=== PATIENT | male | born 1990 | race Caucasian/White ===

== ENCOUNTER 2017-01-21 20:51 | Emergency (ER) | payer OTHER ==
[~2017-01-21] VITALS: Ht 175.3 cm; Wt 91.0 kg
[~2017-01-21 20:51] MED LIST: OXYC1TAB3 PO; TAMS0.4C38 PO
[2017-01-21 21:01] VITALS: Ht 175.3 cm; Wt 91.0 kg
[2017-01-21 21:27] LABS: MANUAL MICROSCOPIC REQUIRED? NO; REVIEW REQ? NO; URINE APPEARANCE TURBID (CLEAR); URINE BILIRUBIN NEG (NEG); URINE COLOR YELLOW; URINE EPITHELIAL CELL AUTO 0-5 /lpf (0-5); URINE NITRITE NEG (NEG); URINE PH 7.5 (4.5-7.5); URINE SPECIFIC GRAVITY 1.019 (1.000-1.030); UROBILINOGEN NEG (NEG); ZZUR CULT IF INDIC CLEAN CATCH NO
[2017-01-21 21:52] LABS: BENZODIAZEPINE, URINE NEG (NEG); COCAINE,URINE NEG (NEG); PHENCYCLIDINE, URINE NEG (NEG)
[2017-01-21] MEDS ORDERED: PROP10TA7 PO (21:53)
[2017-01-21] MEDS ORDERED: QUET1TAB34 PO (21:53)
[2017-01-21] MEDS ORDERED: HYDR1CAP85 PO (21:53)
[2017-01-21] MEDS ORDERED: GUAN1TAB PO (21:53)
[2017-01-21] MEDS ORDERED: SERT-234 PO (21:53)
[2017-01-21 22:08] LABS: BASO % 0.3 %; BASO ABS # 0.03 K/uL (0-0.2); COMPLETE YES; EOS % 3.2 %; HEMATOCRIT 44.1 % (42-52); IG% 0.5 %; LYMPH % 34.3 %; LYMPH ABS # 3.51 K/uL (1.2-3.4); MEAN CELL VOLUME 88.6 fL (80-100); MEAN CORPUSCULAR HEMOGLOBIN 31.3 pg (25-34); MEAN CORPUSCULAR HGB CONC 35.4 g/dl (32-36); MEAN PLATELET VOLUME 8.5 fL (7.4-10.4); MONO % 8.1 %; NEUT % 53.6 %; PLATELET COUNT 324 K/uL (130-400); RED BLOOD COUNT 4.98 M/uL (4.7-6.1); WHITE BLOOD COUNT 10.22 K/uL (4.8-10.8)
[2017-01-21] MEDS ORDERED: hydrOXYzine HCL 25 MG TAB PO STA (22:37)
[2017-01-21 22:40] LABS: ALT/SGPT 20 U/L (12-78); BLOOD UREA NITROGEN 10 mg/dl (7-18); BUN/CREATININE RATIO 11.8 (10-20); CALCIUM 9.6 mg/dl (8.5-10.1); CARBON DIOXIDE 29 mmol/L (21-32); CHLORIDE 104 mmol/L (98-107); CREATININE 0.82 mg/dl (0.60-1.40); GLUCOSE 87 mg/dl (70-99); POTASSIUM 3.8 mmol/L (3.5-5.1); SODIUM 138 mmol/L (136-145)
[2017-01-21 22:50] LABS: ALKALINE PHOSPHATASE 55 U/L (45-117); AST/SGOT 16 U/L (15-37)
[2017-01-21 22:51] LABS: ACETAMINOPHEN < 2 ug/ml (10-30)
--- NOTE | 2017-01-21 23:13 | EMERGENCY ROOM VISIT NOTE ---
History Report prepared by Mahesh: Romy Batista Under the Supervision of: Dr. Myah Buckner M.D. First contact with patient: 21:06 Chief Complaint: MENTAL HEALTH EVALUATION Stated Complaint: SUICIDAL THOUGHTS, RELAPSE History of Present Illness The patient is a 26 year old male who presents to the Emergency Room with complaints of worsening depression starting around 1400 today. The patient has a history of severe depression and anxiety. He was in the [facility] earlier this year. He had been feeling well today. Around 1400, he started having some feelings of depression and anxiety. He was having "premonitions" of driving [address], overdosing on Zoloft, and slitting his throat. He had an appointment with his counselor at 1600. He was "bouncing around" and making statements about self harm. He was saying that if he had the means to harm himself at that moment, he would. He denies having any intention to harm himself today. He smokes marijuana regularly and notes that he did not have any marijuana today. He started a new job yesterday which has been going well for him. He notes that his new job is in a building that is said to be haunted. He denies taking any excess pills today. He does not have any medical problems. He has been told that he might be bipolar, but has not been diagnosed yet. Source of History: patient Onset: 1400 Position: other (global) Quality: other (depression) Timing: worsening Note: Pt reports having thoughts of harming himself, anxiety. Review of Systems See HPI for pertinent positives & negatives. A total of 10 systems reviewed and were otherwise negative. Past Medical & Surgical Medical Problems: (1) Anxiety (2) Depression Family History Patient reports no known family medical history. Social History Smoking Status: Current Every Day Smoker Marital Status: single Occupation Status: employed Current/Historical Medications Scheduled Guanfacine Hcl (Tenex), 1 MG PO DAILY Propranolol (Inderal), 10 MG PO DAILY Quetiapine Fumarate (Seroquel), 100 MG PO QPM Sertraline (Zoloft), 100 MG PO DAILY Scheduled PRN Hydroxyzine Pamoate (Vistaril), 25 MG PO DAILY PRN for Anxiety Allergies Coded Allergies: No Known Allergies (Unverified , 01/21/17) Physical Exam Vital Signs Date Time Temp Pulse Resp B/P (MAP) Pulse Ox O2 Delivery O2 Flow Rate FiO2 01/21/17 22:41 62 140/79 98 Room Air 01/21/17 21:01 36.9 75 20 145/92 97 Room Air Physical Exam Vital signs reviewed. General: Well-appearing male, in no significant distress. HEENT: No scleral icterus, PERRLA, neck supple. Atraumatic. Cardiovascular: Regular rate and rhythm, no extra sounds. Pulmonary: Clear to auscultation bilaterally, normal work of breathing. Abdomen: Soft, nontender, nondistended, positive bowel sounds. Musculoskeletal: Atraumatic, no peripheral edema. Neurologic: Patient awake alert and oriented x 3 Skin: Warm, dry, no rash Psych: Positive SI, negative HI. Medical Decision & Procedures Laboratory Results 01/21/17 21:49 Red Blood Count 4.98, Mean Corpuscular Volume 88.6, Mean Corpuscular Hemoglobin 31.3, Mean Corpuscular Hemoglobin Concent 35.4, Mean Platelet Volume 8.5, Neutrophils (%) (Auto) 53.6, Lymphocytes (%) (Auto) 34.3, Monocytes (%) (Auto) 8.1, Eosinophils (%) (Auto) 3.2, Basophils (%) (Auto) 0.3, Neutrophils # (Auto) 5.47, Lymphocytes # (Auto) 3.51, Monocytes # (Auto) 0.83, Eosinophils # (Auto) 0.33, Basophils # (Auto) 0.03 01/21/17 21:49 Test 01/21/17 21:10 01/21/17 21:49 Urine Color YELLOW Urine Appearance TURBID (CLEAR) Urine pH 7.5 (4.5-7.5) Urine Specific [place] 1.019 (1.000-1.030) Urine Protein NEG (NEG) Urine Glucose (UA) NEG (NEG) Urine Ketones TRACE (NEG) Urine Occult Blood NEG (NEG) Urine Nitrite NEG (NEG) Urine Bilirubin NEG (NEG) Urine Urobilinogen NEG (NEG) Urine Leukocyte Esterase NEG (NEG) Urine WBC (Auto) 0 /hpf (0-5) Urine RBC (Auto) 0-4 /hpf (0-4) Urine Hyaline Casts (Auto) 1-5 /lpf (0-5) Urine Epithelial Cells (Auto) 0-5 /lpf (0-5) Urine Bacteria (Auto) NEG (NEG) Urine Opiates Screen NEG (NEG) Urine Methadone, Qualitative NEG (NEG) Urine Barbiturates NEG (NEG) Urine Phencyclidine (PCP) Level NEG (NEG) Ur Amphetamine/Methamphetamine NEG (NEG) MDMA (Ecstasy) Screen NEG (NEG) Urine Benzodiazepines Screen NEG (NEG) Urine Cocaine Metabolite NEG (NEG) Urine Marijuana (THC) POS (NEG) White Blood Count 10.22 K/uL (4.8-10.8) Red Blood Count 4.98 M/uL (4.7-6.1) Hemoglobin 15.6 g/dL (14.0-18.0) Hematocrit 44.1 % (42-52) Mean Corpuscular Volume 88.6 fL (80-100) Mean Corpuscular Hemoglobin 31.3 pg (25-34) Mean Corpuscular Hemoglobin Concent 35.4 g/dl (32-36) Platelet Count 324 K/uL (130-400) Mean Platelet Volume 8.5 fL (7.4-10.4) Neutrophils (%) (Auto) 53.6 % Lymphocytes (%) (Auto) 34.3 % Monocytes (%) (Auto) 8.1 % Eosinophils (%) (Auto) 3.2 % Basophils (%) (Auto) 0.3 % Neutrophils # (Auto) 5.47 K/uL (1.4-6.5) Lymphocytes # (Auto) 3.51 K/uL (1.2-3.4) Monocytes # (Auto) 0.83 K/uL (0.11-0.59) Eosinophils # (Auto) 0.33 K/uL (0-0.5) Basophils # (Auto) 0.03 K/uL (0-0.2) RDW Standard Deviation 39.7 fL (36.4-46.3) RDW Coefficient of Variation 12.3 % (11.5-14.5) Immature Granulocyte % (Auto) 0.5 % Immature Granulocyte # (Auto) 0.05 K/uL (0.00-0.02) Anion Gap 6.0 mmol/L (3-11) Est Creatinine Clear Calc Drug Dose 149.6 ml/min Estimated GFR () 139.5 Estimated GFR (Non- 120.3 BUN/Creatinine Ratio 11.8 (10-20) Calcium Level 9.6 mg/dl (8.5-10.1) Total Bilirubin 0.3 mg/dl (0.2-1) Direct Bilirubin < 0.1 mg/dl (0-0.2) Aspartate Amino Transf (AST/SGOT) 16 U/L (15-37) Alanine Aminotransferase (ALT/SGPT) 20 U/L (12-78) Alkaline Phosphatase 55 U/L (45-117) Total Protein 8.3 gm/dl (6.4-8.2) Albumin 4.2 gm/dl (3.4-5.0) Thyroid Stimulating Hormone (TSH) 4.640 uIu/ml (0.300-4.500) Free Thyroxine 1.10 ng/dl (0.80-1.60) Free Triiodothyronine 3.82 pg/ml (2.30-4.20) Salicylates Level < 1.7 mg/dl (2.8-20) Acetaminophen Level < 2 ug/ml (10-30) Ethyl Alcohol mg/dL < 3.0 mg/dl (0-3) Laboratory results per my review. Medications Administered Medications (Trade) Dose Ordered Sig/Dara Route Start Time Stop Time Status Last Admin Dose Admin Hydroxyzine HCl (Vistaril Tab) 25 mg NOW STAT PO 01/21/17 22:37 01/21/17 22:38 DC 01/21/17 22:41 25 MG Lorazepam (Ativan Tab) 1 mg NOW STAT SL 01/22/17 00:31 01/22/17 00:32 DC 01/22/17 00:43 1 MG ED Course 2153: Past medical records reviewed. The patient was evaluated in room A5. A complete history and physical examination was performed. 2237: Vistaril Tab 25 mg PO. 0031: Lorazepam 1 mg SL. 0230: There is a bed hold for the [facility] in the morning. The patient was signed out to Dr. Johnson at the end of my shift. Medical Decision Differential diagnosis: Etiologies such as mood disorder, infection, hypoglycemia, electrolyte abnormalities, cardiac sources, intracerebral event, toxicologic, neurologic, as well as others were entertained. This patient was evaluated and appeared to be in no significant distress. Patient was medically cleared. Patient did require Vistaril 25 mg by mouth for anxiety. He was evaluated by mental health. Patient is felt to meet criteria for inpatient admission due to homicidal thoughts and suicidal thoughts. I do not feel he is capable of safety planning and I do feel he is impulsive. There is a 302 petitioning statement on the chart, the patient is voluntary for admission at this time. He has been accepted to the [facility] on a hold for the morning. Case will be signed out to Dr. Johnson at the change of shift, please see her notes for final disposition. Medication Reconcilliation Current Medication List: was personally reviewed by me Blood Pressure Screening Patient's blood pressure: Elevated blood pressure Blood pressure disposition: Elevated BP felt to be situational Impression Primary Impression: Suicidal ideation Additional Impression: Homicidal ideation Scribe Attestation The scribe's documentation has been prepared under my direction and personally reviewed by me in its entirety. I confirm that the note above accurately reflects all work, treatment, procedures, and medical decision making performed by me. Departure Information Dispostion Still a Patient Referrals No Doctor, Assigned (PCP) Patient Instructions My [facility] Problem Qualifiers
[2017-01-22] MEDS ORDERED: LORAZEPAM 1 MG TAB SL STA (00:31)
--- NOTE | 2017-01-22 04:42 | EMERGENCY ROOM VISIT NOTE ---
ED Visit Note First contact with patient: 04:06 This case was signed out to me at change of shift awaiting bed placement. Currently, the bed search has been suspended because no beds were found. This will be resumed in the morning. [facility] will reassess for bed availability at that time. We will give the patient is morning meds. 0605: The patient has been accepted at the [facility] and will be transported there after 10 AM this morning.
[2017-01-22] MEDS ORDERED: SERTRALINE HCL 50 MG TAB PO ONE (06:15)
[2017-01-22 08:42] VITALS: BP 113/74; PULSE 92; TEMP 36.9; O2SAT 98
[2017-01-27 22:38] LABS: SYNTHETIC CANNABINOIDS QL URIN NEGATIVE (Negative)
== END 2017-01-22 08:41 ==
LOC: C.EDB 20:52 → C.EDA 01-22 08:41
DX: R45.851 Suicidal ideations (principal); R45.850 Homicidal ideations; F41.9 Anxiety disorder, unspecified; F32.9 Major depressive disorder, single episode, unspecified; F17.200 Nicotine dependence, unspecified, uncomplicated; F12.90 Cannabis use, unspecified, uncomplicated